=== PATIENT | male | born 1965 ===

== ENCOUNTER → 2022-06-19 | Outpatient (CLI) | payer OTHER ==
[~2022-06-19] VITALS: Ht 172.7 cm; Wt 93.3 kg
[2022-06-19 08:23] VITALS: BP 105/63
== END | disposition home or self-care (01) ==
LOC: SRCNTR 08:22
PROVIDERS: ATTEND Internal Medicine
DX: G47.33 Obstructive sleep apnea (adult) (pediatric) (principal); I10 Essential (primary) hypertension; E78.5 Hyperlipidemia, unspecified; N40.0 Benign prostatic hyperplasia without lower urinary tract symptoms
CPT/HCPCS: G0463; Z7500